=== PATIENT | male | born 1955 | race Hispanic/Latino ===

== ENCOUNTER 2016-06-29 16:56 | Emergency (ER) | payer MEDICARE ==
--- NOTE | 2016-06-29 18:22 | XRay Report ---
FINAL REPORT EXAM: XR SHOULDER 2 LT HISTORY: fall and c/o left shoulder pain COMPARISONS: None. FINDINGS: Four views left shoulder Left glenohumeral joint appears intact. Mild acromioclavicular osteoarthrosis. Acromioclavicular and coracoclavicular intervals are within normal limits. A faint lucency extends through the region of the greater tuberosity of the humeral head. Incomplete evaluation of the adjacent left lung is unremarkable. IMPRESSION: A faint lucency extends through greater tuberosity of the humeral head, which may represent a minimally displaced fracture. No shoulder dislocation. Mild acromioclavicular osteoarthrosis.
--- NOTE | 2016-06-29 20:05 | Emergency Department Report ---
HPI - General Chief Complaint: Fall Time Seen by Provider: 06/29/16 19:24 - HPI HPI: Patient is a 60-year-old male presents to the ED complaining of forearm pain 2 days. Patient states 2 days ago he fell down in his kitchen. Patient states he broke his fall with his hand and did not hit his head. Patient denies loss of consciousness after incident. Patient states arm pain began yesterday and has gotten a bit concerning. Patient denies fever/chills/nausea/vomiting/abdominal pain/chest pain/problem ED Past Medical Hx - Past Medical History Previous Medical History?: Yes Hx Hypertension: Yes Hx Heart Attack/AMI: Yes Hx Congestive Heart Failure: No Hx Diabetes: No Hx Deep Vein Thrombosis: No Hx Pulmonary Embolism: No Hx Liver Disease: No Hx Renal Disease: No Hx Sickle Cell Disease: No Hx Arthritis: No Hx Seizures: No Hx Kidney Stones: No Hx Psychiatric Treatment: Yes (schzioprenia) Hx Asthma: No Hx COPD: No Hx Tuberculosis: No Hx Dementia: No Hx HIV: No Additional medical history: CAD - Surgical History Past Surgical History?: Yes Hx Coronary Stent: Yes (5 years ago) Hx Open Heart Surgery: No Hx Pacemaker: No Hx Internal Defibrillator: No Hx Cholecystectomy: No Hx Appendectomy: No Hx Breast Surgery: No Additional Surgical History: cardiac stent - Social History Substance Use Type: None - Medications Home Medications: Home Medications Medication Instructions Recorded Confirmed Last Taken Type risperiDONE [RisperDAL] 2 mg PO BID #60 tablet 03/31/13 10/06/15 08/08/13 08:00 Rx [place] Carbonate 300 mg PO QDAY 08/08/13 10/06/15 08/08/13 08:00 History Amiodarone [Cordarone 200 MG TAB] 200 mg PO BID #60 tablet 01/13/14 10/06/15 Unknown Rx Clopidogrel [Plavix] 75 mg PO QDAY #30 tablet 01/13/14 10/06/15 Unknown Rx Lisinopril [Zestril TAB] 5 mg PO QDAY #30 tablet 01/13/14 10/06/15 Unknown Rx Metoprolol [Lopressor TAB] 50 mg PO BID #60 tablet 01/13/14 10/06/15 Unknown Rx Aspirin EC [Aspirin Enteric Coated 81 mg PO QDAY 07/08/16 07/08/16 Unknown History TAB] Benztropine [Cogentin] 1 mg PO BID 10/06/15 10/06/15 Unknown History Simvastatin [Zocor TAB] 20 mg PO QHS #30 tablet 10/08/15 Unknown Rx Acetaminophen/Codeine [Tylenol #3] 1 tab PO Q6H PRN #14 tab 06/29/16 Unknown Rx Ibuprofen [Motrin 800 MG tab] 800 mg PO ONCE #20 tablet 06/29/16 Unknown Rx ED Review of Systems ROS: Stated complaint: SHOULDER PAIN Other details as noted in HPI Constitutional: denies: chills, fever Eyes: denies: eye pain, eye discharge, vision change ENT: denies: ear pain, throat pain Respiratory: denies: cough, shortness of breath, wheezing Cardiovascular: denies: chest pain, palpitations Endocrine: no symptoms reported Gastrointestinal: denies: abdominal pain, nausea, diarrhea Genitourinary: denies: urgency, dysuria Musculoskeletal: arthralgia. denies: back pain, joint swelling Skin: denies: rash, lesions Neurological: denies: headache, weakness, paresthesias Psychiatric: denies: anxiety, depression Hematological/Lymphatic: denies: easy bleeding, easy bruising Physical Exam - Physical Exam Vital Signs: Vital Signs 06/29/16 17:07 Temperature 98.2 F Pulse Rate 74 Respiratory 20 Rate Blood Pressure 159/89 O2 Sat by Pulse 99 Oximetry Physical Exam: GENERAL: Alert and oriented x3, no apparent distress, Normal Gait, atraumatic. HEAD: Head is normocephalic and a-traumatic. EYES: Extra ocular muscles are intact. Pupils are equal, round, and reactive to light and accommodation. NECK: Supple. Non edematous, No carotid bruits. No lymphadenopathy or thyromegaly. LUNGS: Symetrical with respiration, No wheezing, no rales or crackles, CTAB. HEART: S1, S2 present, regular rate and rhythm without murmur, no rubs, no gallops. EXTREMITIES/MUSCULOSKELETAL: No cyanosis, clubbing, rash, lesions or edema. Full ROM bilaterally. UE Pulses 2+ bilaterally. UE 5+ strength bilaterally. Patient had mild tenderness to palpation of the anterior aspect of the shoulder. Patient has full range of motion of left shoulder patient has mild pain with extension of the shoulders NEUROLOGIC: No focal Deficit, Cranial nerves II through XII are grossly intact. No loss of sensation, SKIN: Warm and dry, No lesions, No ulceration or induration present. ED Course Vital Signs 06/29/16 17:07 Temperature 98.2 F Pulse Rate 74 Respiratory 20 Rate Blood Pressure 159/89 O2 Sat by Pulse 99 Oximetry ED Medical Decision Making - Radiology Data Radiology results: report reviewed, image reviewed FINAL REPORT EXAM: XR SHOULDER 2 LT HISTORY: fall and c/o left shoulder pain COMPARISONS: None. FINDINGS: Four views left shoulder Left glenohumeral joint appears intact. Mild acromioclavicular osteoarthrosis. Acromioclavicular and coracoclavicular intervals are within normal limits. A faint lucency extends through the region of the greater tuberosity of the humeral head. Incomplete evaluation of the adjacent left lung is unremarkable. IMPRESSION: A faint lucency extends through greater tuberosity of the humeral head, which may represent a minimally displaced fracture. No shoulder dislocation. Mild acromioclavicular osteoarthrosis. Transcribed By: MB Dictated By: JOSE SAINZ MD Electronically Authenticated By: JOSE SAINZ MD Signed Date/Time: 06/29/161817 - Medical Decision Making 60-year-old male presents with shoulder pain secondary to fall. X-ray ordered. X-ray report-see above. Discussed the patient to rest arm. Patient put in an Shoulder sling Shoulder for the next week. Discussed sling during the day. Discussed follow-up with orthopedic doctor is referred in 3-5 days Discussed rest ice compression and elevation. Vital signs are stable patient is in no acute respiratory distress. Critical care attestation.: If time is entered above; I have spent that time in minutes in the direct care of this critically ill patient, excluding procedure time. ED Disposition Clinical Impression: Shoulder pain, left Qualifiers: Chronicity: acute Qualified Code(s): M25.512 - Pain in left shoulder Fall Qualifiers: Encounter type: initial encounter Qualified Code(s): W19.XXXA - Unspecified fall, initial encounter Disposition: DISCHARGED TO HOME OR SELFCARE Is pt being admited?: No Does the pt Need Aspirin: No Condition: Stable Instructions: Shoulder Sprain (ED), Arthralgia (ED) Prescriptions: Acetaminophen/Codeine [Tylenol #3] 1 tab PO Q6H PRN #14 tab PRN Reason: Pain Ibuprofen [Motrin 800 MG tab] 800 mg PO ONCE #20 tablet Referrals: PRIMARY CAREMD [Primary Care Provider] - 3-5 Days TOMY KEVIN MD [Staff Physician] - 3-5 Days OSIEL AMBROSE MD [Staff Physician] - 3-5 Days Forms: Work/School Release Form(ED) Time of Disposition: 20:15
[2016-06-29] MEDS ORDERED: MOTRIN PO ONE (20:06)
[2016-06-29 20:28] VITALS: BP 143/87
== END 2016-06-29 21:01 | disposition home or self-care (01) ==
LOC: ED 16:56
DX: M25.512 Pain in left shoulder (principal); I10 Essential (primary) hypertension; I25.2 Old myocardial infarction; F20.9 Schizophrenia, unspecified; Z79.82 Long term (current) use of aspirin; W18.30XA Fall on same level, unspecified, initial encounter; Y93.89 Activity, other specified; Y99.8 Other external cause status; Y92.000 Kitchen of unspecified non-institutional (private) residence as the place of occurrence of the external cause

== ENCOUNTER 2016-12-18 14:58 | Emergency (ER) | payer MEDICARE ==
[2016-12-18 17:14] VITALS: BP 162/84
[2016-12-18 19:22] LABS: Basophils % (Auto) 0.4 % (0.0-1.8); Eosinophils % (Auto) 0.2 % (0.0-4.3); Hematocrit 28.7 % (35.5-45.6); Hemoglobin 8.8 gm/dl (11.8-15.2); Mean Corpuscular HGB Conc 31 % (32-34); Mean Corpuscular Hemoglobin 22 pg (28-32); Mean Corpuscular Volume 71 fl (84-94); Platelet Count 361 K/mm3 (140-440); Red Blood Count 4.07 M/mm3 (3.65-5.03); Red Cell Distribution Width 18.3 % (13.2-15.2); White Blood Count 10.9 K/mm3 (4.5-11.0)
[2016-12-18 19:35] LABS: Anion Gap 21 mmol/L; Blood Urea Nitrogen 7 mg/dL (9-20); Calcium 9.4 mg/dL (8.4-10.2); Carbon Dioxide 21 mmol/L (22-30); Chloride 86.7 mmol/L (98-107); Glucose 135 mg/dL (75-100); Potassium 3.9 mmol/L (3.6-5.0); Sodium 125 mmol/L (137-145)
[2016-12-18 19:59] LABS: Urine Drugs of Abuse Note Disclamer
[2016-12-18 20:08] LABS: Bilirubin,Urine NEG (Negative); Blood,Urine NEG (Negative); Ketones,Urine NEG (Negative); Leukocyte Esterase,Urine NEG (Negative); Mucus,Urine FEW /HPF; Nitrite,Urine NEG (Negative); Protein,Urine <15 mg/dL mg/dL (Negative); RBC,Urine < 1.0 /HPF (0.0-6.0); Urobilinogen,Urine < 2.0 mg/dL (<2.0); WBC,Urine < 1.0 /HPF (0.0-6.0)
== END 2016-12-18 23:15 | disposition left against medical advice (07) ==
LOC: ED 14:58
DX: F41.9 Anxiety disorder, unspecified (principal); Z53.21 Procedure and treatment not carried out due to patient leaving prior to being seen by health care provider
CPT/HCPCS: 36415; 80048; 80307; 81001; 85025; G0480; 80320

== ENCOUNTER 2017-08-04 08:51 | Emergency (ER) | payer MEDICARE ==
[2017-08-04 09:23] VITALS: BP 162/90
--- NOTE | 2017-08-04 10:46 | Emergency Department Report ---
- General Chief complaint: Extremity Problem,Nontraumatic Stated complaint: RIGHT LEG PAIN Time Seen by Provider: 08/04/17 10:38 Source: patient Mode of arrival: Ambulatory Limitations: No Limitations - History of Present Illness Initial comments: Patient is a 61-year-old male who is presenting with right leg weakness. Patient states that the weakness has been present for approximately 2 years. Patient states there is no change in the weakness at this time but he was urged to come to the emergency department from his roommate because he tripped and fell yesterday. Patient states he has no residual pain from the fall. Again patient states there is no change in his weakness and his right lower extremity or upper extremity. Patient states that 2 years ago 2015 patient did have a MRI and was told he did not have an acute stroke. I have reviewed this MRI report and it does show that he has chronic small vessel ischemic changes. Patient today states he has no headache nausea vomiting diarrhea or dizziness or new weakness. - Related Data Home Medications Medication Instructions Recorded Confirmed Last Taken Singac Carbonate 300 mg PO QDAY 08/08/13 10/06/15 08/08/13 08:00 Aspirin EC [Aspirin Enteric Coated 81 mg PO QDAY 10/06/15 10/06/15 Unknown TAB] Benztropine [Cogentin] 1 mg PO BID 10/06/15 10/06/15 Unknown Previous Rx's Medication Instructions Recorded Last Taken Type risperiDONE [RisperDAL] 2 mg PO BID #60 tablet 03/31/13 08/08/13 08:00 Rx Amiodarone [Cordarone 200 MG TAB] 200 mg PO BID #60 tablet 01/13/14 Unknown Rx Clopidogrel [Plavix] 75 mg PO QDAY #30 tablet 01/13/14 Unknown Rx Lisinopril [Zestril TAB] 5 mg PO QDAY #30 tablet 01/13/14 Unknown Rx Metoprolol [Lopressor TAB] 50 mg PO BID #60 tablet 01/13/14 Unknown Rx Simvastatin [Zocor TAB] 20 mg PO QHS #30 tablet 10/08/15 Unknown Rx Acetaminophen/Codeine [Tylenol #3] 1 tab PO Q6H PRN #14 tab 06/29/16 Unknown Rx Ibuprofen [Motrin 800 MG tab] 800 mg PO ONCE #20 tablet 06/29/16 Unknown Rx Allergies Allergy/AdvReac Type Severity Reaction Status Date / Time No Known Allergies Allergy Verified 08/08/13 12:49 ED Review of Systems ROS: Stated complaint: RIGHT LEG PAIN Other details as noted in HPI Comment: All other systems reviewed and negative ED Past Medical Hx - Past Medical History Previous Medical History?: Yes Hx Hypertension: Yes Hx Heart Attack/AMI: Yes Hx Congestive Heart Failure: No Hx Diabetes: No Hx Deep Vein Thrombosis: No Hx Pulmonary Embolism: No Hx Liver Disease: No Hx Renal Disease: No Hx Sickle Cell Disease: No Hx Arthritis: No Hx Seizures: No Hx Kidney Stones: No Hx Psychiatric Treatment: Yes (schzioprenia) Hx Asthma: No Hx COPD: No Hx Tuberculosis: No Hx Dementia: No Hx HIV: No Additional medical history: CAD - Surgical History Past Surgical History?: Yes Hx Coronary Stent: Yes (5 years ago) Hx Open Heart Surgery: No Hx Pacemaker: No Hx Internal Defibrillator: No Hx Cholecystectomy: No Hx Appendectomy: No Hx Breast Surgery: No Additional Surgical History: cardiac stent - Social History Smoking Status: Former Smoker Substance Use Type: Alcohol - Medications Home Medications: Home Medications Medication Instructions Recorded Confirmed Last Taken Type risperiDONE [RisperDAL] 2 mg PO BID #60 tablet 03/31/13 10/06/15 08/08/13 08:00 Rx Singac Carbonate 300 mg PO QDAY 08/08/13 10/06/15 08/08/13 08:00 History Amiodarone [Cordarone 200 MG TAB] 200 mg PO BID #60 tablet 01/13/14 10/06/15 Unknown Rx Clopidogrel [Plavix] 75 mg PO QDAY #30 tablet 01/13/14 10/06/15 Unknown Rx Lisinopril [Zestril TAB] 5 mg PO QDAY #30 tablet 01/13/14 10/06/15 Unknown Rx Metoprolol [Lopressor TAB] 50 mg PO BID #60 tablet 01/13/14 10/06/15 Unknown Rx Aspirin EC [Aspirin Enteric Coated 81 mg PO QDAY 10/06/15 10/06/15 Unknown History TAB] Benztropine [Cogentin] 1 mg PO BID 10/06/15 10/06/15 Unknown History Simvastatin [Zocor TAB] 20 mg PO QHS #30 tablet 10/08/15 Unknown Rx Acetaminophen/Codeine [Tylenol #3] 1 tab PO Q6H PRN #14 tab 06/29/16 Unknown Rx Ibuprofen [Motrin 800 MG tab] 800 mg PO ONCE #20 tablet 06/29/16 Unknown Rx ED Physical Exam - General Limitations: No Limitations General appearance: alert, in no apparent distress - Head Head exam: Present: atraumatic, normocephalic - Eye Eye exam: Present: normal appearance - ENT ENT exam: Present: mucous membranes moist - Neck Neck exam: Present: normal inspection - Respiratory Respiratory exam: Present: normal lung sounds bilaterally. Absent: respiratory distress - Cardiovascular Cardiovascular Exam: Present: regular rate, normal rhythm. Absent: systolic murmur, diastolic murmur, rubs, gallop - GI/Abdominal GI/Abdominal exam: Present: soft, normal bowel sounds - Rectal Rectal exam: Present: deferred - Extremities Exam Extremities exam: Present: normal inspection - Back Exam Back exam: Present: normal inspection - Neurological Exam Neurological exam: Present: alert, oriented X3, CN II-XII intact, abnormal gait (patient walks with a cane secondary to weakness in his right lower extremity. Patient's weakness is a 4/5) - Psychiatric Psychiatric exam: Present: normal affect, normal mood - Skin Skin exam: Present: warm, dry, intact, normal color. Absent: rash - Level of Consciousness 1a. Level of Consciousness: alert - LOC Questions 1b. LOC Questions: answers correctly - LOC Command 1c. LOC Commands: performs tasks correctly - Best Gaze 2. Best Gaze: normal - Visual 3. Visual: no visual loss - Facial Palsy 4. Facial Palsy: normal symmetrical movement - Motor Arm 5b. Motor Arm Right: drift 5a. Motor Arm Left: no drift - Motor Leg 6a. Motor Leg Left: no drift 6b. Motor Leg Right: drift - Limb Ataxia 7. Limb Ataxia: absent - Sensory 8. Sensory: normal - Best Language 9. Best Language: no aphasia - Dysarthria 10. Dysarthria: normal - Extinction and Inattention 11. Extinction/Inattention: no abnormality - Scoring Total Score: 2 Stroke Severity: Minor Stroke ED Course Vital Signs 08/04/17 09:17 Temperature 97.8 F Pulse Rate 63 Respiratory 18 Rate Blood Pressure 162/90 O2 Sat by Pulse 95 Oximetry ED Medical Decision Making - Medical Decision Making Patient is showing no signs of new weakness at this time. CT of the head is not warranted as the patient admits that his weakness is not new and there's been no change in the weakness over the past 2 years. Patient will be referred to neurology Critical care attestation.: If time is entered above; I have spent that time in minutes in the direct care of this critically ill patient, excluding procedure time. ED Disposition Clinical Impression: Weakness Disposition: DC-01 TO HOME OR SELFCARE Is pt being admited?: No Does the pt Need Aspirin: No Condition: Stable Referrals: FIORDALIZA GODINEZ MD [Referring] - 3-5 Days
== END 2017-08-04 10:55 | disposition home or self-care (01) ==
LOC: ED 08:51
DX: M62.81 Muscle weakness (generalized) (principal); I10 Essential (primary) hypertension; I25.2 Old myocardial infarction; F20.9 Schizophrenia, unspecified; Z87.891 Personal history of nicotine dependence
CPT/HCPCS: 99283

== ENCOUNTER 2017-12-19 09:25 | Emergency (ER) | payer MEDICARE ==
--- NOTE | 2017-12-19 11:17 | XRay Report ---
RIGHT KNEE, 3 views: History: Right knee pain. The bony architecture is intact without evidence of fracture or dislocation. A large joint effusion extends to the suprapatellar bursa. IMPRESSION: Large joint effusion. No bony abnormality is detected. If internal derangement is suspected, MRI right knee could be obtained.
--- NOTE | 2017-12-19 11:52 | Emergency Department Report ---
ED Lower Extremity HPI - General Chief Complaint: Extremity Problem,Nontraumatic Stated Complaint: RIGHT LEG PAIN Source: patient Mode of arrival: Ambulatory Limitations: No Limitations - History of Present Illness Initial Comments: This is a 62-year-old male who presents with right knee pain for 2 days. Patient states pain is 10 out of 10 on pain scale and worse with movement. Patient states he can barely bend his right knee which is causing him to use a cane for ambulation. Patient states his knee feel as if it is locked. He is also complaining of swelling and redness to right knee. Patient denies recent injury, numbness or tingling, or fever. MD Complaint: knee injury (right knee) Onset/Timin -: days(s) Injury: Knee: Right Type of Injury: unknown Place: home Severity: moderate Severity scale (0 -10): 9 Improves With: nothing Worsens With: weight bearing, movement Associated Symptoms: snap/pop sensation, swelling, able to partially bear weight , ambulatory. denies: numbness, tingling Treatments Prior to Arrival: NSAIDS - Related Data Home Medications Medication Instructions Recorded Confirmed Last Taken [place] Carbonate 300 mg PO QDAY 08/08/13 10/06/15 08/08/13 08:00 Aspirin EC [Aspirin Enteric Coated 81 mg PO QDAY 10/06/15 10/06/15 Unknown TAB] Benztropine [Cogentin] 1 mg PO BID 10/06/15 10/06/15 Unknown Previous Rx's Medication Instructions Recorded Last Taken Type risperiDONE [RisperDAL] 2 mg PO BID #60 tablet 03/31/13 08/08/13 08:00 Rx Amiodarone [Cordarone 200 MG TAB] 200 mg PO BID #60 tablet 01/13/14 Unknown Rx Clopidogrel [Plavix] 75 mg PO QDAY #30 tablet 01/13/14 Unknown Rx Lisinopril [Zestril TAB] 5 mg PO QDAY #30 tablet 01/13/14 Unknown Rx Metoprolol [Lopressor TAB] 50 mg PO BID #60 tablet 01/13/14 Unknown Rx Simvastatin [Zocor TAB] 20 mg PO QHS #30 tablet 10/08/15 Unknown Rx Acetaminophen/Codeine [Tylenol #3] 1 tab PO Q6H PRN #14 tab 06/29/16 Unknown Rx Ibuprofen [Motrin 800 MG tab] 800 mg PO ONCE #20 tablet 06/29/16 Unknown Rx Diclofenac Potassium 50 mg PO TID #12 tablet 12/19/17 Unknown Rx Allergies Allergy/AdvReac Type Severity Reaction Status Date / Time No Known Allergies Allergy Verified 08/08/13 12:49 ED Review of Systems ROS: Stated complaint: RIGHT LEG PAIN Other details as noted in HPI Constitutional: denies: chills, fever Respiratory: denies: cough, shortness of breath, wheezing Cardiovascular: denies: chest pain, palpitations Gastrointestinal: denies: abdominal pain, nausea, diarrhea Musculoskeletal: joint swelling (right knee), arthralgia (right knee). denies: back pain Skin: denies: rash, lesions Neurological: denies: headache, weakness, paresthesias Psychiatric: denies: anxiety, depression ED Past Medical Hx - Past Medical History Hx Hypertension: Yes Hx Heart Attack/AMI: Yes Hx Congestive Heart Failure: No Hx Diabetes: No Hx Deep Vein Thrombosis: No Hx Pulmonary Embolism: No Hx Liver Disease: No Hx Renal Disease: No Hx Sickle Cell Disease: No Hx Arthritis: No Hx Seizures: No Hx Kidney Stones: No Hx Psychiatric Treatment: Yes (schzioprenia) Hx Asthma: No Hx COPD: No Hx Tuberculosis: No Hx Dementia: No Hx HIV: No Additional medical history: CAD - Surgical History Hx Coronary Stent: Yes (5 years ago) Hx Open Heart Surgery: No Hx Pacemaker: No Hx Internal Defibrillator: No Hx Cholecystectomy: No Hx Appendectomy: No Hx Breast Surgery: No Additional Surgical History: cardiac stent - Social History Smoking Status: Former Smoker Substance Use Type: None - Medications Home Medications: Home Medications Medication Instructions Recorded Confirmed Last Taken Type risperiDONE [RisperDAL] 2 mg PO BID #60 tablet 03/31/13 10/06/15 08/08/13 08:00 Rx [place] Carbonate 300 mg PO QDAY 08/08/13 10/06/15 08/08/13 08:00 History Amiodarone [Cordarone 200 MG TAB] 200 mg PO BID #60 tablet 01/13/14 10/06/15 Unknown Rx Clopidogrel [Plavix] 75 mg PO QDAY #30 tablet 01/13/14 10/06/15 Unknown Rx Lisinopril [Zestril TAB] 5 mg PO QDAY #30 tablet 01/13/14 10/06/15 Unknown Rx Metoprolol [Lopressor TAB] 50 mg PO BID #60 tablet 01/13/14 10/06/15 Unknown Rx Aspirin EC [Aspirin Enteric Coated 81 mg PO QDAY 10/06/15 10/06/15 Unknown History TAB] Benztropine [Cogentin] 1 mg PO BID 10/06/15 10/06/15 Unknown History Simvastatin [Zocor TAB] 20 mg PO QHS #30 tablet 10/08/15 Unknown Rx Acetaminophen/Codeine [Tylenol #3] 1 tab PO Q6H PRN #14 tab 06/29/16 Unknown Rx Ibuprofen [Motrin 800 MG tab] 800 mg PO ONCE #20 tablet 06/29/16 Unknown Rx Diclofenac Potassium 50 mg PO TID #12 tablet 12/19/17 Unknown Rx ED Physical Exam - General Limitations: No Limitations General appearance: alert, in no apparent distress - Respiratory Respiratory exam: Present: normal lung sounds bilaterally. Absent: respiratory distress - Cardiovascular Cardiovascular Exam: Present: regular rate, normal rhythm. Absent: systolic murmur, diastolic murmur, rubs, gallop - Expanded Lower Extremity Exam Right Hip exam: Present: normal inspection, full ROM Upper Leg exam: Present: normal inspection, full ROM Knee exam: Present: tenderness, swelling, crepidus, effusion, pain w/ pronation/ supination, pain/laxity with valgus, pain/laxity with varus. Absent: full ROM ( limited active and passive range of motion, 30), abrasion, laceration, ecchymosis, deformity, dislocation, erythema, posterior draw sign, full knee extension Lower Leg exam: Present: normal inspection, full ROM Ankle exam: Present: normal inspection, full ROM Foot/Toe exam: Present: normal inspection, full ROM Neuro vascular tendon exam: Present: no vascular compromise Gait: Positive: observed and limited by pain - Neurological Exam Neurological exam: Present: alert, oriented X3 - Psychiatric Psychiatric exam: Present: normal affect, normal mood - Skin Skin exam: Present: warm, dry, intact, normal color. Absent: rash ED Course Vital Signs 12/19/17 12/19/17 09:44 13:32 Temperature 97.7 F 97.6 F Pulse Rate 84 64 Respiratory 18 16 Rate Blood Pressure 146/70 Blood Pressure 169/85 [Right] O2 Sat by Pulse 97 98 Oximetry ED Lower Extremity MDM - Radiology Data Radiology results: report reviewed, image reviewed RIGHT KNEE, 3 views: History: Right knee pain. The bony architecture is intact without evidence of fracture or dislocation. A large joint effusion extends to the suprapatellar bursa. IMPRESSION: Large joint effusion. No bony abnormality is detected. If internal derangement is suspected, MRI right knee could be obtained. - Medical Decision Making Patient was examined by me. Vitals are normal and patient is in no acute distress. Patient included Toradol and dexamethasone IM once when ER. Obtained a x-ray of right knee. X-rays dictated by radiologist and report reviewed by myself. Large joint effusion. No bony abnormality is detected. If internal derangement is suspected, MRI right knee could be obtained. Patient informed of results. Knee immobilizer applied to right knee. Start diclofenac 50 mg po TID prn. Plan discussed with patient to discharge home and treat outpatient. He agrees with ER plan. Patient discharged home in stable condition. Follow up with PCP in 2-3 days. Critical care attestation.: If time is entered above; I have spent that time in minutes in the direct care of this critically ill patient, excluding procedure time. ED Disposition Clinical Impression: Knee effusion, right Right knee pain Qualifiers: Chronicity: acute Qualified Code(s): M25.561 - Pain in right knee Disposition: DC-01 TO HOME OR SELFCARE Is pt being admited?: No Does the pt Need Aspirin: No Condition: Stable Instructions: Knee Effusion (ED), Arthralgia (ED) Additional Instructions: Rest Use ice or heat on affected area for 20 minutes and off for 2 hours. Take pain medication as needed for pain. Follow up with Primary Care Provider in 2-3 days. Prescriptions: Diclofenac Potassium 50 mg PO TID #12 tablet Referrals: ABHIJIT ESTRADA MD [Staff Physician] - 3-5 Days [facility] [Provider Group] - 3-5 Days RUSSEL RIVERA MD [Staff Physician] - 3-5 Days Time of Disposition: 12:52 Print Language: OCCITAN
[2017-12-19] MEDS ORDERED: TORADOL IM ONE (12:43)
[2017-12-19] MEDS ORDERED: DECADRON IM ONE (12:43)
[2017-12-19 13:33] VITALS: BP 169/85
== END 2017-12-19 13:33 | disposition home or self-care (01) ==
LOC: ED 09:25
DX: M25.461 Effusion, right knee (principal); M25.561 Pain in right knee; I10 Essential (primary) hypertension; I25.2 Old myocardial infarction; Z95.1 Presence of aortocoronary bypass graft; Z87.891 Personal history of nicotine dependence; Z79.82 Long term (current) use of aspirin
CPT/HCPCS: 29505; 73562; 96372; 99283; J1100; J1885

== ENCOUNTER 2019-01-02 07:20 | Emergency (ER) | payer SELFPAY ==
[2019-01-02 07:29] VITALS: BP 147/83
[2019-01-02] MEDS ORDERED: HYDROcodone/ACETAMINOPHEN 5-325 MG TAB PO ONE (07:41)
--- NOTE | 2019-01-02 07:45 | Emergency Department Report ---
ED Fall HPI - General Chief Complaint: Fall Stated Complaint: FLANK PAIN Time Seen by Provider: 01/02/19 07:40 Source: patient, EMS Mode of arrival: Wheelchair - History of Present Illness Initial Comments: Pt reports tripping over something in his bedroom yesterday and falling onto his L ribs. Pain worse with movement of arm No head injury/LOC Denies SOB, states some coughing MD Complaint: fall -: Sudden, days(s) (1) Fall From: standing When Fall Occurred: 24 hours [employer] Fall Witnessed: no Place Fall Occurred: home Loss of Consciousness: none Prolonged Down Time?: no Symptoms Prior to Fall: none Location: chest Severity: moderate Severity scale (0 -10): 6 Quality: sharp Context: tripped/slipped Associated Symptoms: denies - Related Data Home Medications Medication Instructions Recorded Confirmed Last Taken [place] Carbonate 300 mg PO QDAY 08/08/13 10/06/15 08/08/13 08:00 Aspirin EC 81 mg PO QDAY 10/06/15 10/06/15 Unknown Benztropine [Cogentin] 1 mg PO BID 10/06/15 10/06/15 Unknown Previous Rx's Medication Instructions Recorded Last Taken Type risperiDONE [RisperDAL] 2 mg PO BID #60 tablet 03/31/13 08/08/13 08:00 Rx Amiodarone [Cordarone 200 MG TAB] 200 mg PO BID #60 tablet 01/13/14 Unknown Rx Clopidogrel [Plavix] 75 mg PO QDAY #30 tablet 01/13/14 Unknown Rx Lisinopril [Zestril TAB] 5 mg PO QDAY #30 tablet 01/13/14 Unknown Rx Metoprolol [Lopressor TAB] 50 mg PO BID #60 tablet 01/13/14 Unknown Rx Simvastatin (Nf) [Zocor TAB] 20 mg PO QHS #30 tablet 10/08/15 Unknown Rx Acetaminophen/Codeine [Tylenol #3] 1 tab PO Q6H PRN #14 tab 06/29/16 Unknown Rx Ibuprofen [Motrin 800 MG tab] 800 mg PO ONCE #20 tablet 06/29/16 Unknown Rx Diclofenac Potassium 50 mg PO TID #12 tablet 12/19/17 Unknown Rx Cyclobenzaprine [Flexeril 10 MG 10 mg PO TID PRN #15 tablet 01/02/19 Unknown Rx TAB] Lidocaine [Lidoderm] 1 each TP DAILY #15 adh..patch 01/02/19 Unknown Rx Allergies Allergy/AdvReac Type Severity Reaction Status Date / Time No Known Allergies Allergy Verified 08/08/13 12:49 ED Review of Systems ROS: Stated complaint: FLANK PAIN Other details as noted in HPI Comment: All other systems reviewed and negative Musculoskeletal: as per HPI ED Past Medical Hx - Past Medical History Previous Medical History?: Yes Hx Hypertension: Yes Hx Heart Attack/AMI: Yes Hx Congestive Heart Failure: No Hx Diabetes: No Hx Deep Vein Thrombosis: No Hx Pulmonary Embolism: No Hx Liver Disease: No Hx Renal Disease: No Hx Sickle Cell Disease: No Hx Arthritis: No Hx Seizures: No Hx Kidney Stones: No Hx Psychiatric Treatment: Yes (schzioprenia) Hx Asthma: No Hx COPD: Yes Hx Tuberculosis: No Hx Dementia: No Hx HIV: No Additional medical history: CAD - Surgical History Past Surgical History?: Yes Hx Coronary Stent: Yes (5 years ago) Hx Open Heart Surgery: No Hx Pacemaker: No Hx Internal Defibrillator: No Hx Cholecystectomy: No Hx Appendectomy: No Hx Breast Surgery: No Additional Surgical History: cardiac stent - Social History Smoking Status: Former Smoker Substance Use Type: Prescribed - Medications Home Medications: Home Medications Medication Instructions Recorded Confirmed Last Taken Type risperiDONE [RisperDAL] 2 mg PO BID #60 tablet 03/31/13 10/06/15 08/08/13 08:00 Rx [place] Carbonate 300 mg PO QDAY 08/08/13 10/06/15 08/08/13 08:00 History Amiodarone [Cordarone 200 MG TAB] 200 mg PO BID #60 tablet 01/13/14 10/06/15 Unknown Rx Clopidogrel [Plavix] 75 mg PO QDAY #30 tablet 01/13/14 10/06/15 Unknown Rx Lisinopril [Zestril TAB] 5 mg PO QDAY #30 tablet 01/13/14 10/06/15 Unknown Rx Metoprolol [Lopressor TAB] 50 mg PO BID #60 tablet 01/13/14 10/06/15 Unknown Rx Aspirin EC 81 mg PO QDAY 10/06/15 10/06/15 Unknown History Benztropine [Cogentin] 1 mg PO BID 10/06/15 10/06/15 Unknown History Simvastatin (Nf) [Zocor TAB] 20 mg PO QHS #30 tablet 10/08/15 Unknown Rx Acetaminophen/Codeine [Tylenol #3] 1 tab PO Q6H PRN #14 tab 06/29/16 Unknown Rx Ibuprofen [Motrin 800 MG tab] 800 mg PO ONCE #20 tablet 06/29/16 Unknown Rx Diclofenac Potassium 50 mg PO TID #12 tablet 12/19/17 Unknown Rx Cyclobenzaprine [Flexeril 10 MG 10 mg PO TID PRN #15 tablet 01/02/19 Unknown Rx TAB] Lidocaine [Lidoderm] 1 each TP DAILY #15 adh..patch 01/02/19 Unknown Rx ED Physical Exam - General Limitations: Physical Limitation General appearance: alert, in no apparent distress - Head Head exam: Present: atraumatic, normocephalic - Eye Eye exam: Present: normal appearance - ENT ENT exam: Present: mucous membranes moist - Neck Neck exam: Present: normal inspection - Respiratory Respiratory exam: Present: normal lung sounds bilaterally, chest wall tenderness (over L lateral mid ribs, no crepitus or ecchymosis ). Absent: respiratory distress - Cardiovascular Cardiovascular Exam: Present: regular rate, normal rhythm. Absent: systolic murmur, diastolic murmur, rubs, gallop - GI/Abdominal GI/Abdominal exam: Present: soft, normal bowel sounds. Absent: tenderness, guarding, rebound - Rectal Rectal exam: Present: deferred - Extremities Exam Extremities exam: Present: normal inspection - Back Exam Back exam: Present: normal inspection - Neurological Exam Neurological exam: Present: alert, oriented X3 - Psychiatric Psychiatric exam: Present: normal affect, normal mood - Skin Skin exam: Present: warm, dry, intact, normal color. Absent: rash ED Course Vital Signs 01/02/19 07:26 Temperature 98.9 F Pulse Rate 71 Respiratory 18 Rate Blood Pressure 147/83 O2 Sat by Pulse 96 Oximetry ED Medical Decision Making - Radiology Data Radiology results: report reviewed, image reviewed negative rib series - Medical Decision Making GLF yesterday, pain to L anterior/lateral ribs, worse with movement of shoulder No abd ttp, lungs clear imaging to r/o fx/ptx norco for pain - Differential Diagnosis contusion, fx, ptx Critical care attestation.: If time is entered above; I have spent that time in minutes in the direct care of this critically ill patient, excluding procedure time. ED Disposition Clinical Impression: Contusion of rib on left side Qualifiers: Encounter type: initial encounter Qualified Code(s): S20.212A - Contusion of left front wall of thorax, initial encounter Disposition: TO HOME OR SELFCARE Is pt being admited?: No Condition: Good Instructions: Contusion in Adults (ED) Prescriptions: Cyclobenzaprine [Flexeril 10 MG TAB] 10 mg PO TID PRN #15 tablet PRN Reason: Muscle Spasm Lidocaine [Lidoderm] 1 each TP DAILY #15 adh..patch Referrals: KIP TRAN MD [Staff Physician] - 3-5 Days Time of Disposition: 08:29
--- NOTE | 2019-01-02 08:26 | XRay Report ---
LEFT RIBS 6 VIEWS INDICATION / CLINICAL INFORMATION: pain after a fall. COMPARISON: None available. FINDINGS: RIBS: No acute, displaced fracture or other acute abnormality. LUNGS: Focal parenchymal density right lower lobe likely represents mild scarring/atelectasis No acut e findings. No pneumothorax. Signer Name: Sohail Win MD Signed: 01/02/2019 8:21 AM Workstation Name: [id number]
== END 2019-01-02 08:58 | disposition home or self-care (01) ==
LOC: ED 07:20
DX: S20.212A Contusion of left front wall of thorax, initial encounter (principal); I10 Essential (primary) hypertension; I25.2 Old myocardial infarction; J44.9 Chronic obstructive pulmonary disease, unspecified; F20.9 Schizophrenia, unspecified; Z87.891 Personal history of nicotine dependence; Z95.5 Presence of coronary angioplasty implant and graft; Z79.899 Other long term (current) drug therapy; W19.XXXA Unspecified fall, initial encounter; Y93.89 Activity, other specified; Y92.89 Other specified places as the place of occurrence of the external cause; Y99.8 Other external cause status

== ENCOUNTER 2021-01-29 14:20 | Emergency (ER) | payer MEDICARE ==
[2021-01-29 17:48] VITALS: BP 167/77
--- NOTE | 2021-01-29 18:28 | Emergency Department Report ---
HPI - General Chief Complaint: Eye Problems Time Seen by Provider: 01/29/21 18:09 - HPI HPI: Room 36 The patient is a 65-year-old male present with a chief complaint hazy vision and right knee pain. Patient states he has had hazy vision from both eyes progressing over the past 6 to 12 months. Patient denies ocular pain. Patient states he went to an neurological physiotherapist and had a test performed and was told he may have cataracts. The patient states he has not followed up since. Patient also complains of pain in his right knee for the past 6 months to 1 year. Patient denies trauma but states she has pain in his right knee when he ambulates. ED Past Medical Hx - Past Medical History Hx Hypertension: Yes Hx Heart Attack/AMI: Yes Hx Psychiatric Treatment: Yes (schziophrenia) Hx COPD: Yes Additional medical history: CAD - Surgical History Hx Coronary Stent: Yes (5 years ago) Additional Surgical History: cardiac stent - Family History Family history: no significant - Social History Smoking Status: Former Smoker Substance Use Type: None (Denies illicit drug use), Alcohol (Rarely), Prescribed - Medications Home Medications: Home Medications Medication Instructions Recorded Confirmed Last Taken Type risperiDONE [RisperDAL] 2 mg PO BID #60 tablet 03/31/13 10/06/15 08/08/13 08:00 Rx [place] Carbonate 300 mg PO QDAY 08/08/13 10/06/15 08/08/13 08:00 History Amiodarone [Cordarone 200 MG TAB] 200 mg PO BID #60 tablet 01/13/14 10/06/15 Unknown Rx Clopidogrel [Plavix] 75 mg PO QDAY #30 tablet 01/13/14 10/06/15 Unknown Rx Metoprolol [Lopressor TAB] 50 mg PO BID #60 tablet 01/13/14 10/06/15 Unknown Rx lisinopriL [Zestril TAB] 5 mg PO QDAY #30 tablet 01/13/14 10/06/15 Unknown Rx Aspirin EC [Ecotrin] 81 mg PO QDAY 10/06/15 10/06/15 Unknown History Benztropine [Cogentin] 1 mg PO BID 10/06/15 10/06/15 Unknown History Simvastatin (Nf) [Zocor TAB] 20 mg PO QHS #30 tablet 10/08/15 Unknown Rx Acetaminophen/Codeine [Tylenol #3] 1 tab PO Q6H PRN #14 tab 06/29/16 Unknown Rx Ibuprofen [Motrin 800 MG tab] 800 mg PO ONCE #20 tablet 06/29/16 Unknown Rx Diclofenac Potassium 50 mg PO TID #12 tablet 12/19/17 Unknown Rx Cyclobenzaprine [Flexeril 10 MG 10 mg PO TID PRN #15 tablet 01/02/19 Unknown Rx TAB] Lidocaine [Lidoderm] 1 each TP DAILY #15 adh..patch 01/02/19 Unknown Rx Ibuprofen [Motrin 800 MG tab] 800 mg PO Q8HR PRN #20 tablet 01/29/21 Unknown Rx traMADoL [Ultram] 50 mg PO Q6HR PRN #20 tablet 01/29/21 Unknown Rx ED Review of Systems ROS: Stated complaint: CANT SEE/WALK Other details as noted in HPI Constitutional: no symptoms reported Eyes: vision change. denies: eye pain Respiratory: no symptoms reported Cardiovascular: denies: chest pain Endocrine: no symptoms reported Gastrointestinal: denies: abdominal pain Genitourinary: denies: dysuria Musculoskeletal: arthralgia Neurological: denies: headache Physical Exam - Physical Exam Vital Signs: Vital Signs 01/29/21 17:44 Temperature 97 F L Pulse Rate 97 H Respiratory 16 Rate Blood Pressure 167/77 [Left] O2 Sat by Pulse 97 Oximetry Physical Exam: GENERAL: The patient is well-developed well-nourished male lying on stretcher not appearing to be in acute distress. [] HEENT: Normocephalic. Atraumatic. Extraocular motions are intact. No red reflex, no hypopyon or hyphema NECK: Supple. Trachea midline CHEST/LUNGS: There is no respiratory distress noted. SKIN: There is no rash. There is no edema. There is no diaphoresis. NEURO: The patient is awake, alert, and oriented. The patient is cooperative. The patient has no focal neurologic deficits. The patient has normal speech. GCS 15 MUSCULOSKELETAL: There is mild tenderness to the medial aspect of the right knee. There is no pain with varus or valgus stress. There is no evidence of acute injury. ED Course Vital Signs 01/29/21 17:44 Temperature 97 F L Pulse Rate 97 H Respiratory 16 Rate Blood Pressure 167/77 [Left] O2 Sat by Pulse 97 Oximetry ED Medical Decision Making - Radiology Data Radiology results: report reviewed (Right knee x-ray right knee x-ray), image reviewed interpreted by me: Right knee x-ray-no acute fracture, no dislocation [facility] [address] [place] [address] XRay Report Signed Patient: LAURA SRINIVASAN MR#: [id number] : 1955 Acct:[id number] Age/Sex: 65 / M ADM Date: 01/29/21 Loc: ED Attending Dr: Ordering Physician: ARIA JOHNSON MD Date of Service: 01/29/21 Procedure(s): XR knee 3V RT Accession Number(s): [id number] cc: ARIA JOHNSON MD Fluoro Time In Minutes: Right knee 3 views INDICATION: Right knee pain IMPRESSION: No fracture or subluxation of the right knee is identified. There is mild prepatellar soft tissue edema. No significant knee effusion. Signer Name: Isreal Morrissey MD Signed: 01/29/2021 7:03 PM Workstation Name: [id number] Transcribed By: BC Dictated By: Isreal Morrissey MD Electronically Authenticated By: Isreal Morrissey MD Signed Date/Time: 01/29/211902 DD/ 02 TD/TT: Print Cancel - Differential Diagnosis Cataracts, osteoarthritis, degenerative joint disease Critical care attestation.: If time is entered above; I have spent that time in minutes in the direct care of this critically ill patient, excluding procedure time. ED Disposition Clinical Impression: Cataracts, bilateral, Right knee pain Disposition: HOME / SELF CARE / HOMELESS Is pt being admited?: No Does the pt Need Aspirin: No Condition: Stable Instructions: Cataract, Chronic Knee Pain, Adult, [id number] Additional Instructions: Return to the emergency department should you develop worsening symptoms, inability to tolerate food or liquids, high fever or any other concerns Prescriptions: Ibuprofen [Motrin 800 MG tab] 800 mg PO Q8HR PRN #20 tablet PRN Reason: Pain, Moderate (4-6) traMADoL [Ultram] 50 mg PO Q6HR PRN #20 tablet PRN Reason: Pain Referrals: CYNTHIA GILES MD [Staff Physician] - 3-5 Days (Dr. Giles is an school office manager. Please follow-up with him for further evaluation) ABHIJIT BRITO MD [Staff Physician] - 3-5 Days (Dr. Brito is an orthopedic surgeon. Please follow-up with him for further evaluation of your knee pain) Time of Disposition: 19:22
--- NOTE | 2021-01-29 19:08 | XRay Report ---
Right knee 3 views INDICATION: Right knee pain IMPRESSION: No fracture or subluxation of the right knee is identified. There is mild prepatellar sof t tissue edema. No significant knee effusion. Signer Name: Isreal Morrissey MD Signed: 01/29/2021 7:03 PM Workstation Name: [id number]
== END 2021-01-29 22:15 | disposition home or self-care (01) ==
LOC: ED 14:20
DX: M25.561 Pain in right knee (principal); H26.9 Unspecified cataract; I10 Essential (primary) hypertension; I25.10 Atherosclerotic heart disease of native coronary artery without angina pectoris; J44.9 Chronic obstructive pulmonary disease, unspecified
CPT/HCPCS: 99283